=== PATIENT | female | born 1970 | race Caucasian/White ===

== ENCOUNTER 2019-09-24 23:43 | Emergency (ER) | payer MEDICAID, OTHER ==
[~2019-09-24] VITALS: Ht 172.7 cm; Wt 66.0 kg
[~2019-09-24 23:43] MED LIST: CARB200T4 PO; EVE1000C3 PO; THIA100T67 PO; TRAZ50TA66 PO; VITAMIN B12 PO
--- NOTE | 2019-09-25 00:12 | NUR ---
ROOMED SECURED, PT LEAVING URINE SAMPLE.
[2019-09-25 00:24] LABS: BASOPHILS # (AUTO) 0.05 x10^3/uL (0-0.1); BASOPHILS % (AUTO) 1 % (0-1); EOSINOPHILS # (AUTO) 0.36 x10^3/uL (0-0.4); EOSINOPHILS % (AUTO) 4 % (1-7); LYMPHOCYTES # (AUTO) 2.91 x10^3/uL (1-3.4); LYMPHOCYTES % (AUTO) 33 % (22-44); MD NO; MEAN CORPUSCULAR HEMOGLOBIN 29.6 pg (27.0-34.8); MEAN CORPUSCULAR HGB CONC 33.5 g/dL (32.4-35.8); MEAN CORPUSCULAR VOLUME 88.3 fL (80-100); MEAN PLATELET VOLUME 8.3 fL (7.4-10.4); MONOCYTES # (AUTO) 0.32 x10^3/uL (0.2-0.8); MONOCYTES % (AUTO) 4 % (2-9); NEUTROPHILS # (AUTO) 5.33 x10^3/uL (1.8-6.8); NEUTROPHILS % (AUTO) 60 % (42-75); PLATELET COUNT 304 x10^3/uL (130-400); RED BLOOD COUNT 5.34 x10^6/uL (3.82-5.3); RED CELL DISTRIBUTION WIDTH 13.6 % (9.6-15.2)
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
[2019-09-25 00:35] LABS: MICROSCOPIC INDICATED
[2019-09-25 00:37] LABS: ALBUMIN 4.5 g/dL (3.4-5.0); ANION GAP 7 mmol/L (5-15); CALCIUM 9.4 mg/dL (8.5-10.1); CHLORIDE 113 mmol/L (98-107); CREATININE 0.95 mg/dL (0.55-1.02); SALICYLATE LEVEL 2.6 mg/dL (2.8-20.0)
[2019-09-25 00:39] LABS: AMPHETAMINE SCREEN, URINE Negative (Negative); BARBITURATE SCREEN, URINE Negative (Negative); BENZODIAZEPINE SCREEN, URINE Negative (Negative); CANNABINOID SCREEN, URINE Positive (Negative); COCAINE SCREEN, URINE Negative (Negative); METHADONE SCREEN, URINE Negative (Negative); OPIATE SCREEN, URINE Negative (Negative)
[2019-09-25 00:50] VITALS: BP 133/88
--- NOTE | 2019-09-25 01:40 | NUR ---
PT SLEEPING, EVEN UNLABORED RESPIRATIONS. SITTER AT DOORWAY FOR SAFETY MONITORING.
--- NOTE | 2019-09-25 02:50 | NUR ---
BREATHALYZER DONE. PT COOPERATIVE, RESTING ON GURNEY. SAFETY PRECAUTIONS IN ROOM IN PLACE.
--- NOTE | 2019-09-25 03:51 | NUR ---
SLEEPING ON GURNEY, EVEN UNLABORED RESPIRATIONS. SITTER IN BURNS FOR SAFETY MONITORING.
--- NOTE | 2019-09-25 04:28 | NUR ---
REPEAT BREATHALYZER 0.183.
--- NOTE | 2019-09-25 05:09 | NUR ---
RESTING ON GURNEY, EVEN UNLABORED RESPIRATIONS. SAFETY PRECAUTIONS IN ROOM.
--- NOTE | 2019-09-25 05:46 | NUR ---
BREATHALYZER 0.144.
--- NOTE | 2019-09-25 06:52 | NUR ---
REPORT FROM TIM RN, ASSUME CARE OF PT AT THIS TIME.
--- NOTE | 2019-09-25 08:23 | NUR ---
PT SLEEPING, NAD, SITTER AT DOORWAY.
--- NOTE | 2019-09-25 08:45 | NUR ---
PT AROUSABLE TO VOICE. REPEAT BREATHALYZER 0.066-READY FOR PSYCH EVAL. MEAL TRAY PROVIDED. SITTER AT DOORWAY.
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
== END 2019-09-25 09:32 | disposition home or self-care (01) ==
LOC: ED 09-25 02:04
DX: F32.1 Major depressive disorder, single episode, moderate (principal); F10.129 Alcohol abuse with intoxication, unspecified; R41.82 Altered mental status, unspecified; Z72.9 Problem related to lifestyle, unspecified
CPT/HCPCS: 36415; 80048; 80307; 81001; 82040; 85025; 87086; 99283